=== PATIENT | male | born 1970 | race Caucasian/White ===

== ENCOUNTER → 2018-09-18 | Outpatient (CLI) | payer OTHER ==
[~2018-09-18] MED LIST: AMARYL4 MG; GLUCOPHAGE850 MG; PRAVASTATIN SOD10 MG; PRECOSE 50 MG50 M1; PREDNISONE 20 M20 MG PO; ZESTRIL5 MG
== END ==
LOC: M.ULTRA 08:50
DX: K76.0 Fatty (change of) liver, not elsewhere classified (principal); R16.1 Splenomegaly, not elsewhere classified